=== PATIENT | female | born 1985 | race Caucasian/White ===

== ENCOUNTER 2023-11-24 10:30 | Outpatient (CLI) | payer SELFPAY ==
[2023-11-24 11:37] LABS: Estradiol 348.5 pg/mL
== END 2023-11-24 10:31 | disposition home or self-care (01) ==
LOC: LAB 10:45
DX: Z01.89 Encounter for other specified special examinations (principal)
CPT/HCPCS: 36415; 82670; 84144

== ENCOUNTER 2024-01-05 16:54 | Outpatient (CLI) | payer SELFPAY ==
--- NOTE | 2024-01-05 16:59 | USR_ITS ---
NOTE: Report was unsigned for reason: Ordering provider was edited. Original Signature date and time was: 01/05/24 @ 1706 PROCEDURE INFORMATION: Exam: US First Trimester, Transabdominal Exam date and time: 01/05/2024 5:06 PM Age: 38 years old Clinical indication: Screening exam; Routine US, uterus; Additional info: Dating TECHNIQUE: Imaging protocol: Real-time transabdominal obstetrical ultrasound of the maternal pelvis and a first trimester , less than 14 weeks 0 days, with image documentation. COMPARISON: No relevant prior studies available. FINDINGS: GESTATION: Gestation: Yolk sac measures 4.6 mm. Embryonic/ heart rate: 159 bpm Extra-embryonic membranes/Placenta: Unremarkable. No subchorionic bleed. Amniotic/Chorionic fluid: Amniotic and extra-amniotic fluid are normal for gestational age. BIOMETRY: Gestational age (AUA): EGA based on ultrasound is 7 weeks and 4 days with an MARISSA of 08/19/2024. MATERNAL: Uterus: Unremarkable. Cervix: Unremarkable. Endocervical canal is closed. Right ovary/adnexa: Obscured by lack of adequate acoustic window. Left ovary/adnexa: Obscured by lack of adequate acoustic window. Intraperitoneal space: No intraperitoneal free fluid. [facility] <= 14 weeks fetus [id number] IMPRESSION: Single live intrauterine fetus. EGA based on ultrasound is 7 weeks and 4 days.
== END 2024-01-05 16:55 | disposition home or self-care (01) ==
LOC: RAD 16:55
PROVIDERS: Visit Provider Nurse Practitioner Adult Health
DX: Z31.83 Encounter for assisted reproductive fertility procedure cycle (principal)
CPT/HCPCS: 76801